=== PATIENT | male | born 1955 | race Caucasian/White ===

== ENCOUNTER → 2016-06-28 | Outpatient (CLI) | payer MEDICAID ==
--- NOTE | 2016-06-28 18:06 | PN ---
This patient is a 60-year-old coming in for a CPAP compliancy check. He had severe obstructive sleep apnea and an AHI of 48.4 and chronic hypersomnia. He underwent CPAP titration on 03/21/2016 and he failed the titration knowing that there was ongoing episodes of hypopneas and central apneas emerging while on CPAP therapy. Based on that, the patient was given an auto ASV treatment. The patient is coming in for a compliancy check. He has an ASV machine with E-PAP minimum of 5, maximum of 15 and a pressure support minimum of 5 and pressure support maximum of 10. Based on the compliance data, his ASV is used for more than 4 hours is 27 out of 30. His AHI while on treatment is at 3.8. No central apneas noted. He is however having difficulties with his mask interface. He is utilizing a Simplus full face mask and there is considerable amount of leak around the mask, especially after the treatment kicks in following a ramp of 45 minutes. His leak factor is 53 L/min. As such, his overall clinical response as reported by the patient is suboptimal despite the adequate and successful drop in AHI while on treatment. BP is 128/86, pulse 77, respirations 18, temperature 98.3. Anamoose score is 7. Weight is 207. GENERAL APPEARANCE: Calm, comfortable. HEENT: Mallampati class IV. There is no goiter, neck mass. LUNGS: Clear to auscultation. HEART: Sounds are regular rate and rhythm. Normal S1, S2. ABDOMEN: Soft, nontender. No organomegaly. EXTREMITIES: No clubbing. No cyanosis or clubbing. IMPRESSION: 1. Severe obstructive sleep apnea, apnea-hypopnea index of 48.4 with treatment emergent central apnea, and some residual obstructive hypopneas maintained on auto ASV treatment. 2. Poor mask interface seal with increased air leak and secondary discomfort. 3. Chronic hypersomnia with limited improvement with ASV treatment. Anamoose score is 7. PLAN: 1. Will drop the EPAP maximum pressure down to 10. 2. We will provide the patient AirFit F10 full-face mask and drop his Simplus mask. 3. See me back in 6 weeks in follow-up to re-evaluate the compliance.
== END | disposition home or self-care (01) ==

== ENCOUNTER → 2016-08-16 | Outpatient (CLI) | payer MEDICAID ==
--- NOTE | 2016-08-16 23:38 | PN ---
This is a 60-year-old male patient with complex and severe obstructive sleep apnea with an AHI of 48.4. The patient had developed treatment-emergent central apneas and some residual obstructive hypopneas. Based on that, the patient was given Auto ASV treatment. He was having difficulties with the mask seal, and based on that the patient is coming in for a followup. Note that on today's evaluation the patient is still having difficulties utilizing his mask. He is having leaks around the nose bridge, and the leak is extending to his eyes, which is making him very uncomfortable. It seems that over the past 2 weeks he has not utilizing his ASV machine, and he has become much more symptomatic. His weight has been stable. The patient is getting more frustrated and obviously he will need a different type of mask to be utilized to improve the leak that has been noted. Note that the patient has used his Simplus mask and an AirFit F10, and both have failed to provide a good seal. BP is 131/79, pulse 83, respirations 16, temperature 97.7, saturation 95% on room air. Weight is 207. GENERAL APPEARANCE: Calm, comfortable. HEENT: Crowding of the posterior pharynx. No goiter or neck mass. LUNGS: Clear to auscultation. HEART: Heart sounds are regular rate and rhythm. Normal S1, S2. ABDOMEN: Soft, nontender. No organomegaly. EXTREMITIES: No edema. No cyanosis or clubbing. IMPRESSION: 1. Severe symptomatic obstructive sleep apnea; apnea-hypopnea index of 48.4; with treatment-emergent central apneas and some residual obstructive hypopneas. The patient was offered ASV treatment, and the treatment has been suboptimal due to poor mask interface seal. 2. Chronic hypersomnia. Current [place] score is 9. PLAN: 1. Change the ASV to automatic and offer pressures as follows: EPAP minimum of 5, APAP maximum of 15, pressure support of 4 minimum and 10 maximum. 2. Provide the patient a Mirage Quattro full-face mask, medium size. This was tried in the office and seems to be successful. 3. See me back in 2 months' time in followup. Anticipate further improvement in compliance with the above-mentioned adjustments.
== END | disposition home or self-care (01) ==
LOC: SLEEP 14:24
PROVIDERS: ATTEND Internal Medicine Critical Care Medicine
DX: G47.33 Obstructive sleep apnea (adult) (pediatric) (principal); G47.10 Hypersomnia, unspecified; Z99.89 Dependence on other enabling machines and devices

== ENCOUNTER → 2016-12-01 | Outpatient (CLI) | payer MEDICAID ==
--- NOTE | 2016-12-01 08:16 | CT ---
EXAMINATION TYPE: CT chest wo con DATE OF EXAM: 12/01/2016 COMPARISON: 08/20/2010 HISTORY: Patient complains of left shoulder and neck pain with crepitus. CT DLP: 727 mGycm, Automated exposure control for dose reduction was used. CONTRAST: None TECHNIQUE: Axial images were obtained at 5 mm thick sections. Reconstructed images are reviewed on [email or web address] computer in the coronal plane. FINDINGS: Portion of the thyroid visualized is normal. No suspicious lung nodules or focal infiltrates are present. No pneumothorax is evident. No subcutane ous air is identified. There is some streak opacity along the major fissure on the left most likely o n the basis of atelectasis. Some minimal dependent atelectasis may be at the posterior left base as w ell. No enlarged mediastinal or hilar adenopathy is evident. The ascending aorta diameter at the level o f the main pulmonary artery is 3.6 cm. The main pulmonary artery diameter at the bifurcation is 2.5 cm. Coronary artery calcifications present. Limited CT sections are obtained through the upper abdomen. Abdomen is essentially unremarkable. IMPRESSIONS: 1. Mild left basilar atelectasis. No pneumothorax or subcutaneous emphysema within the [id number].
== END | disposition home or self-care (01) ==
LOC: RADCTMAIN 07:17
PROVIDERS: ATTEND Orthopaedic Surgery
DX: J98.11 Atelectasis (principal); S20.212A Contusion of left front wall of thorax, initial encounter; S43.52XA Sprain of left acromioclavicular joint, initial encounter; M50.00 Cervical disc disorder with myelopathy, unspecified cervical region
CPT/HCPCS: 71250

== ENCOUNTER → 2016-12-01 | Outpatient (CLI) | payer MEDICAID ==
--- NOTE | 2016-12-01 23:05 | MR ---
EXAMINATION TYPE: MR cervical spine wo con DATE OF EXAM: 12/01/2016 COMPARISON: NONE HISTORY: Neck pain, erik arm numbness x 2 weeks, no trauma TECHNIQUE: Multiplanar, multisequence images of the cervical spine were acquired. The cervical vertebra have normal alignment. Disc spaces are fairly normal for age. There is no evide nce for fracture. There are small posterior disc bulges at C4-5 C5-6 without significant impingement on the spinal canal. Cervical spinal cord has normal signal pattern. There is no evidence of edema. T here is no spinal stenosis. Posterior elements appear intact. The brainstem appears normal. I see no paraspinal mass. There is minimal uncovertebral spurring and neural foraminal impingement on the righ t side at C4-5 best seen on the axial images.. IMPRESSION: There is mild uncovertebral spurring and neural foraminal impingement at C4-5 on the right side. No s gina stenosis. No fracture.
== END | disposition home or self-care (01) ==
LOC: RADMRIMAIN 19:49
PROVIDERS: ATTEND Orthopaedic Surgery
DX: M46.02 Spinal enthesopathy, cervical region (principal); M48.8X2 Other specified spondylopathies, cervical region
CPT/HCPCS: 71250; 72141

== ENCOUNTER → 2016-12-05 | Outpatient (CLI) | payer MEDICAID ==
--- NOTE | 2016-12-05 09:11 | MR ---
EXAMINATION TYPE: MR shoulder LT wo con DATE OF EXAM: 12/05/2016 8:46 AM COMPARISON: NONE HISTORY: Lt shoulder pain TECHNIQUE: Multiplanar, multisequence imaging of the left shoulder is performed without contrast. FINDINGS: The study is mildly compromised by patient motion artifact. There is no evidence of an os acromiale. There are [id number] hypertrophic and inflammatory maximus nges in the left AC joint. The acromion is neutral. There is a 9.3 mm rim rent tear involving the anterior fibers of the infraspinatus tendon. The supras pinatus tendon appears unremarkable. The cartilaginous glenoid labrum appears intact. There is some intrasubstance abnormal signal in the intra-articular portion of the biceps tendon. The biceps tendon is intact and inserts normally upon the biceps anchor. There is a small amount of fluid in the rotator interval. IMPRESSION: 1. 9 MM INDETERMINATE TEAR INVOLVING THE ANTERIOR FIBERS OF THE INFRASPINATUS TENDON. 2. ABNORMAL SIGNAL WITHIN THE INTRA-ARTICULAR PORTION OF THE BICEPS TENDON MAY REFLECT INTRASUBSTANCE TEAR OR TENDINOSIS OF THE BICEPS TENDON. 3. [id number] HYPERTROPHIC AND INFLAMMATORY CHANGES INVOLVING THE LEFT AC JOINT.
== END | disposition home or self-care (01) ==
LOC: RADMRIMAIN 08:06
PROVIDERS: ATTEND Orthopaedic Surgery
DX: S46.912A Strain of unspecified muscle, fascia and tendon at shoulder and upper arm level, left arm, initial encounter (principal)

== ENCOUNTER → 2017-05-09 | Outpatient (CLI) | payer MEDICAID ==
--- NOTE | 2017-05-09 18:04 | PN ---
PROGRESS NOTE This is a 61-year-old male patient coming in for further advice regarding his complex JOSELUIS treatment. The patient was diagnosed having severe JOSELUIS with an AHI of 48.4, and the patient developed treatment emergent central apneas and residual obstructive hypopneas. He was given ASV therapy and during his last evaluation his ASV machine was set with a EPAP minimum of 4, maximum of 10, pressure support minimum of 5, maximum of 15. The main issue with this patient was finding an appropriate mask interface. The patient continued having increased leaks around the mask and I tried him on different masks including Simplus full-face mask, AirFit F10 full-face mask and Mirage Quattro full face mask. In all instances, the patient continued to have leaks and his treatment was quite noisy and uncomfortable and he ended up quitting the treatment, he has not used for the past 6 months. Over the past 6 months the patient became more symptomatic and he is coming in for further advice. Yesterday for example he used a Mirage Quattro fullface mask, and his treatment was successful and his AHI was less than 5 without any major leaks. I think the problem is the mask interface and at same time, the patient has low commitment towards treatment. However I suspect that the patient is more symptomatic and he may make an better effort to restart treatment. Based on that, I spent at least 15 minutes to 20 minutes with him trying to find him a better mask interface to improve tolerability and comfort. His weight has been stable. No other new comorbid conditions. BP is 144/82, pulse 100, respirations 16, temperature 97.6, saturation 93% on room air. Weight is 212, height is 5 feet 8, general appearance is calm and comfortable. Head is atraumatic, normocephalic. Neck is supple. Mallampati class IV. There is no goiter or neck mass. Lungs clear to auscultation. Heart sounds are regular rate and rhythm. Normal S1, S2. Abdomen is soft, nontender. No organomegaly. EXTREMITIES: No edema. No cyanosis or clubbing. IMPRESSION: 1. Severe symptomatic obstructive sleep apnea with treatment emergent central apneas and residual hypopneas. AHI was at 48. The patient was offered ASV therapy with above-mentioned settings. 2. Chronic hypersomnia Living[place] Score is at 7. PLAN: 1. Utilize the same machine with the same settings. 2. I offered this patient two different masks, one of them is an Joanne View and the other one is an AirFit F20. He will try both masks and report to me back of the clinical response. I am hoping that we should be able to achieve better mask seal and improve his tolerability and compliance. CHERYL / FOSTER: [id number] /
== END | disposition home or self-care (01) ==
LOC: SLEEP 16:25
PROVIDERS: ATTEND Internal Medicine Critical Care Medicine
DX: G47.33 Obstructive sleep apnea (adult) (pediatric) (principal)

== ENCOUNTER → 2018-07-16 | Outpatient (CLI) | payer MEDICAID ==
--- NOTE | 2018-07-16 12:48 | EST ---
EXERCISE STRESS AGE: 62 SEX: M HT: 5'9" WT: 205 PROTOCOL: Ulises Stress Test STAGE: II DURATION OF EXERCISE: 6:00 HEART RATE REST: 82 BLOOD PRESSURE REST: 135/88 MAXIMUM HEART RATE ACHIEVED: 141 MAXIMUM BLOOD PRESSURE: 180/82 85% MPHR: 134 100% MPHR: 158 METS: 7.1 INDICATIONS: Chest pain. CLINICAL INFORMATION: Patient was exercised for a total period of 6 minutes, a peak heart rate of 141 was achieved, maximum blood pressure of 180/82 mmHg was noted. Resting EKG shows normal sinus rhythm with a QRS morphology suggestive for right bundle branch block pattern was noted. During exercise J-point depression with upsloping ST segments were noted. Occasional PVCs were noted and occasional ventricular couplets and triplets were noted. The patient complained of atypical chest pain during the test. FINAL IMPRESSION: 1. This stress electrocardiogram is not suggestive of ischemia. 2. Patient complained of atypical chest pain during the test. 3. Intermittent premature ventricular contractions and occasional ventricular couplets and triplets were noted during exercise. MMODL / IJN: [id number] /
== END ==
LOC: RADNMMAIN 08:48
PROVIDERS: ATTEND Family Medicine
DX: R07.89 Other chest pain (principal)
CPT/HCPCS: 93017

== ENCOUNTER → 2018-07-20 | Outpatient (CLI) | payer MEDICAID ==
[2018-07-20 09:01] LABS: HCT 44.9 % (39.0-53.0); HGB 14.4 gm/dL (13.0-17.5); MCH 28.3 pg (25.0-35.0); MCHC 31.9 g/dL (31.0-37.0); MCV 88.7 fL (80.0-100.0); Mean Platelet Volume 6.6; Platelet Count 283 k/uL (150-450); RBC 5.07 m/uL (4.30-5.90); WBC 6.9 k/uL (3.8-10.6)
[2018-07-20 16:48] LABS: Albumin 3.9 g/dL (3.80-4.90); Albumin/Globulin Ratio 2.17 (1.60-3.17); Anion Gap 6.5 mmol/L (4.00-12.00); Calcium 9.5 mg/dL (8.7-10.3); Carbon Dioxide 29.5 mmol/L (21.6-31.8); Globulin 1.8 g/dL (1.6-3.3); Potassium 5.4 mmol/L (3.5-5.5); Total Bilirubin 0.3 mg/dL (0.2-1.2); Total Protein 5.7 g/dL (6.2-8.2)
== END ==
LOC: LABWHC1 07:30
PROVIDERS: ATTEND Family Medicine
DX: Z00.00 Encounter for general adult medical examination without abnormal findings (principal); E55.9 Vitamin D deficiency, unspecified; R07.89 Other chest pain
CPT/HCPCS: 36415; 80053; 80061; 82306; 84153; 84439; 84443; 85027

== ENCOUNTER → 2019-07-01 | Outpatient (CLI) | payer MEDICAID ==
[2019-07-01 08:52] LABS: Appearance,Urine Clear (Clear); Bilirubin,Urine Negative (Negative); Blood,Urine Negative (Negative); Color,Urine Yellow; Glucose,Urine (UA) Negative (Negative); Ketones,Urine Negative (Negative); Leukocyte Esterase,Urine Negative (Negative); Nitrite,Urine Negative (Negative); PH, Urine 7.5 (5.0-8.0); Protein,Urine Negative (Negative); Urobilinogen,Urine <2.0 mg/dL (<2.0)
[2019-07-01 08:56] LABS: Basophils # (A) 0.1 k/uL (0-0.2); Basophils % (A) 1 %; Eosinophils # (A) 0.7 k/uL (0-0.7); Eosinophils % (A) 8 %; HCT 43.5 % (39.0-53.0); HGB 14.5 gm/dL (13.0-17.5); Lymphocytes # (A) 2.9 k/uL (1.0-4.8); Lymphocytes % (A) 36 %; MCH 28.9 pg (25.0-35.0); MCHC 33.2 g/dL (31.0-37.0); MCV 87.1 fL (80.0-100.0); Mean Platelet Volume 6.7; Monocytes # (A) 0.3 k/uL (0-1.0); Monocytes % (A) 4 %; Neutrophils # (A) 4.1 k/uL (1.3-7.7); Neutrophils % (A) 50 %; Platelet Count 363 k/uL (150-450); RDW 13.2 % (11.5-15.5); WBC 8.3 k/uL (3.8-10.6)
[2019-07-01 10:11] LABS: Erythrocyte Sedimentation Rate 8 mm/hr (0-15)
[2019-07-01 16:11] LABS: African American GFR (CKD) 110.2 (60.0-200.0); Albumin 4.1 g/dL (3.80-4.90); Albumin/Globulin Ratio 2.16 (1.60-3.17); Anion Gap 2.3 mmol/L (4.00-12.00); C Reactive Protein, High Sens 4.58 mg/L (0.000-3.000); Calcium 9.3 mg/dL (8.7-10.3); Carbon Dioxide 27.7 mmol/L (21.6-31.8); Chol/HDL Ratio 2.26; Globulin 1.9 g/dL (1.6-3.3); Non-African American GFR(CKD) 95.1 (60.0-200.0); Potassium 4.6 mmol/L (3.5-5.5); Total Bilirubin 0.6 mg/dL (0.3-1.2)
== END | disposition home or self-care (01) ==
LOC: LABWHC1 08:20
PROVIDERS: ATTEND Family Medicine
DX: Z00.00 Encounter for general adult medical examination without abnormal findings (principal); Z13.220 Encounter for screening for lipoid disorders; Z12.5 Encounter for screening for malignant neoplasm of prostate
CPT/HCPCS: 36415; 80053; 80061; 81003; 82306; 82550; 82607; 84153; 84443; 85025; 85652; 86141

== ENCOUNTER → 2019-09-06 | Outpatient (CLI) | payer MEDICAID | END | disposition home or self-care (01) | LOC: LABWHC1 09:32 | PROVIDERS: ATTEND Urology | DX: R97.20 Elevated prostate specific antigen [PSA] (principal) | CPT/HCPCS: 36415; 84153 ==

== ENCOUNTER → 2020-03-17 | Outpatient (CLI) | payer MEDICAID ==
--- NOTE | 2020-03-17 12:00 | ECHOF ---
Referral Reason:R07.9 chest pain MEASUREMENTS -------- HEIGHT: 175.3 cm WEIGHT: 99.8 kg BP: RVIDd: 3.2 cm (< 3.3) IVSd: 1.5 cm (0.6 - 1.1) LVIDd: 4.0 cm (3.9 - 5.3) LVPWd: 1.3 cm (0.6 - 1.1) IVSs: 1.9 cm LVIDs: 2.9 cm LVPWs: 1.6 cm LA Diam: 3.5 cm (2.7 - 3.8) LAESV Index (A-L): 24.22 ml/m Ao Diam: 4.0 cm (2.0 - 3.7) AV Cusp: 2.4 cm (1.5 - 2.6) MV EXCURSION: 14.230 mm (> 18.000) MV EF SLOPE: 47 mm/s (70 - 150) EPSS: 1.4 cm MV E Salas: 0.68 m/s MV DecT: 214 ms MV A Salas: 1.04 m/s MV E/A Ratio: 0.66 AR PHT: 684 ms FINDINGS -------- Sinus rhythm. This was a technically good study. The left ventricular size is normal. There is moderate concentric left ventricular hypertrophy. O verall left ventricular systolic function is normal with, an EF between 60 - 65 %. The right ventricle is normal in size. Normal LA size by volume 22+/-6 ml/m2. The right atrium is normal in size. Interatrial and interventricular septum intact. Aortic valve is trileaflet and is mildly thickened. There is mild aortic regurgitation. The mitral valve leaflets are mildly thickened. Mild mitral annular calcification present. There is trace mitral regurgitation. The tricuspid valve appears structurally normal. Trace/mild (physiologic) pulmonic regurgitation. The aortic root is dilated measuring 4.0cm. Normal inferior vena cava with normal inspiratory collapse consistent with estimated right atrial pre ssure of 5 mmHg. There is no pericardial effusion. CONCLUSIONS -------- 1. The left ventricular size is normal. 2. There is moderate concentric left ventricular hypertrophy. 3. Overall left ventricular systolic function is normal with, an EF between 60 - 65 %. 4. Aortic valve is trileaflet and is mildly thickened. 5. There is mild aortic regurgitation. 6. The mitral valve leaflets are mildly thickened. 7. Mild mitral annular calcification present. 8. There is trace mitral regurgitation. 9. Trace/mild (physiologic) pulmonic regurgitation. 10. The aortic root is dilated measuring 4.0cm. 11. There is no pericardial effusion. VP SOFTWARE ENGINEERING: Denise Salomon RDCS
== END | disposition home or self-care (01) ==
LOC: RADECHMAIN 10:16
PROVIDERS: ATTEND Internal Medicine Interventional Cardiology
DX: I37.1 Nonrheumatic pulmonary valve insufficiency (principal); I08.0 Rheumatic disorders of both mitral and aortic valves; I77.810 Thoracic aortic ectasia
CPT/HCPCS: 93306

== ENCOUNTER → 2020-03-17 | Outpatient (CLI) | payer MEDICAID ==
[2020-03-17 12:17] LABS: HCT 45.4 % (39.0-53.0); MCH 29.1 pg (25.0-35.0); MCV 88.1 fL (80.0-100.0); Mean Platelet Volume 6.7; Platelet Count 312 k/uL (150-450); RBC 5.16 m/uL (4.30-5.90); RDW 13.1 % (11.5-15.5); WBC 10.5 k/uL (3.8-10.6)
[2020-03-17 12:22] LABS: African American GFR (CKD) >90 (>60 ml/min/1.73 sqM); Anion Gap 4 mmol/L; Blood Urea Nitrogen 18 mg/dL (9-20); Carbon Dioxide 29 mmol/L (22-30); Chloride 102 mmol/L (98-107); Non-African American GFR(CKD) >90 (>60 ml/min/1.73 sqM); Potassium 4.9 mmol/L (3.5-5.1); Sodium 135 mmol/L (137-145)
== END | disposition home or self-care (01) ==
LOC: LABPAT 11:04
PROVIDERS: ATTEND Internal Medicine Interventional Cardiology
DX: Z01.818 Encounter for other preprocedural examination (principal); R07.9 Chest pain, unspecified
CPT/HCPCS: 36415; 80051; 82565; 84520; 85027

== ENCOUNTER 2020-03-19 09:20 | Day surgery (SDC) | payer MEDICAID ==
[2020-03-17 09:25] VITALS: BMI 32.5
[~2020-03-19 09:20] MED LIST: ALPRAZolam 0.25 MG TAB PO PRN; ALPRAZolam 0.5 MG TAB PO PRN; ASPIRIN 325 MG TAB PO STA; ATORVASTATIN 80 MG TAB PO STA; NITROGLYCERIN SL TABS 0.4 MG TAB SUBLINGUAL PRN; SODIUM CHLORIDE 0.9% 1,000 ML in EMPTY BAG 1 BAG IV ONE
[2020-03-19] MEDS: MIDAZOLAM 2 MG/2 ML VIAL IV ONE ×2 (10:40→10:47)
[2020-03-19] MEDS ORDERED: LIDOCAINE 1% INJ 10MG/ML (20 ML MDV) SQ ONE ×2 (10:47→10:55)
[2020-03-19] MEDS ORDERED: CLOPIDOGREL 75 MG TAB PO ONE (11:11)
[2020-03-19] MEDS ORDERED: IOPAMIDOL-370 125ML BTL INJ ONE (11:21)
[2020-03-19] MEDS ORDERED: GABAPENTIN 400 MG CAP PO PRN (11:32)
[2020-03-19] MEDS ORDERED: CYCLOBENZAPRINE 10 MG TAB PO PRN (11:32)
[2020-03-19] MEDS ORDERED: ATROPINE SULFATE 0.1 MG/ML 10ML SYRINGE IV PRN (11:33)
[2020-03-19] MEDS ORDERED: MAG HYDROX/AL HYDROX/SIMETH 30 ML CUP PO PRN (11:33)
[2020-03-19] MEDS ORDERED: ZOLPIDEM 5 MG TAB PO PRN (11:33)
[2020-03-19] MEDS ORDERED: RX INFO: IV CONTRAST WAS GIVEN 1 EACH MISC MISCELLANE PRN (11:33)
[2020-03-19] MEDS ORDERED: NITROGLYCERIN SL TABS 0.4 MG TAB SUBLINGUAL PRN (11:33)
[2020-03-19] MEDS ORDERED: SODIUM CHLORIDE 0.9% 1,000 ML IV SCH (11:45)
--- NOTE | 2020-03-19 12:33 | CC ---
CARDIAC CATHETERIZATION REPORT DATE OF SERVICE: 03/19/2020 PERFORMING PHYSICIAN: Delbert Tay MD. PROCEDURE PERFORMED: 1. Selective right and left coronary angiogram. 2. Left heart catheterization. 3. Successful stenting of the mid RCA using 3.0 x 18 mm Xience JANES with an excellent angiographic result and reduction of stenosis from 90% to 0%. 4. INDICATION: This is a pleasant 64-year-old gentleman with hypertension and dyslipidemia who was experiencing symptoms of chest pain with exertion concerning for severe underlying coronary artery disease. Because of that, a heart catheterization was advised. APPROACH: 1. Right radial artery. 2. Right common femoral artery. COMPLICATION: None. LEVEL OF SEDATION: Moderate with sedation length of 40 minutes. PROCEDURE DESCRIPTION: After obtaining informed consent, the patient was brought to the cardiac builder's labourer. Initially the right radial artery was cannulated using micropuncture technique, the micropuncture wire passed easily then I placed a 6-Maltese sheath in the right radial artery. Attempting advancing JR4 catheter from right radial approach was unsuccessful and was painful to the patient and because of that, the right radial approach was aborted and I decided to access the right groin. The right common femoral artery was cannulated using micropuncture technique, the micropuncture wire passed easily, then I placed a 6-Maltese sheath at the right common femoral artery. After that, I did selective right and left coronary angiogram using JR4 and JL3.5 catheters. Left heart catheterization was performed using 6-Maltese pigtail catheter. After that, I decided to intervene on the right coronary artery. Please see a separate paragraph for that. SELECTIVE CORONARY ANGIOGRAM: 1. The right coronary artery is a large caliber vessel and it is a dominant vessel. The RCA is calcified. The RCA proximally has mild disease only and in the midportion does have severe lesion appeared to be in the range of 80% to 90%. The RCA distally is normal and bifurcates into PDA and PLV branches, both appeared to be angiographically normal. 2. The left main is angiographically normal. It bifurcates into LCX and LAD. 3. The LCX is a medium caliber vessel. It is a nondominant vessel. The proximal left circumflex is normal and gives rise into an OM1 which has a tight lesion, appeared to be in the range of 80% and seems to be slightly calcified. The mid left circumflex appeared to have mild disease only and gives rise into second OM branch which appeared to be angiographically normal. The left circumflex continued after that as a small-caliber vessel in the AV groove. 4. The LAD proximally has mild disease only and gives rise into first diagonal branch which seems to be angiographically normal. The mid and distal LAD appeared to be normal. 5. HEMODYNAMICS: The LVEDP was about 10 mmHg without significant gradient across the aortic valve. 6. PCI of the RCA: Anticoagulation was achieved with heparin which was given at the beginning after inserting the right radial sheath. After that, I did engage the RCA using JR4 guide. I did wire it using a run-through wire. After that I did predilatation using 2.5 x 12 mm balloon before I deployed 3.0 x 18 mm Xience JANES where the stent was positioned under fluoroscopy guidance and deployed under 14 atmospheres for 20 seconds. After that, I did postdilatation using 3.25 x 8 mm NC balloon which was inflated under 14 atmospheres for 20 seconds. The following angiogram showed good angiographic results and the procedure was completed without any complication. CONCLUSION: 1. Calcified right and left coronary systems. 2. Critical disease involving the mid RCA. 3. Severe disease involving OM1 of the left circumflex. 4. Successful stenting of the RCA. POSTPROCEDURE MANAGEMENT: 1. PCI of the first obtuse marginal branch with probably adjunctive use of atherectomy. 2. Dual anti-platelet therapy. 3. Follow up with the patient. MMLEXIL / IJN: [id number] /
[2020-03-19 20:22] VITALS: RESP 18
[2020-03-19] MEDS ORDERED: ASPIRIN 81 MG PO SCH (21:00)
[2020-03-19] MEDS ORDERED: ATORVASTATIN 80 MG TAB PO SCH (21:00)
[2020-03-19] MEDS ORDERED: METOPROLOL SUCCINATE (ER) 25 MG TAB.ER.24H PO SCH (21:00)
[2020-03-19] MEDS ORDERED: TAMSULOSIN 0.4 MG CAP.ER.24H PO SCH (21:00)
[2020-03-20 07:48] LABS: Basophils # (A) 0.1 k/uL (0-0.2); Basophils % (A) 0 %; Eosinophils # (A) 0.3 k/uL (0-0.7); Eosinophils % (A) 3 %; HCT 46.5 % (39.0-53.0); HGB 15.4 gm/dL (13.0-17.5); Lymphocytes # (A) 2.2 k/uL (1.0-4.8); Lymphocytes % (A) 20 %; MCHC 33.1 g/dL (31.0-37.0); MCV 90.8 fL (80.0-100.0); Mean Platelet Volume 6.4; Monocytes # (A) 0.5 k/uL (0-1.0); Monocytes % (A) 5 %; Neutrophils # (A) 7.9 k/uL (1.3-7.7); Neutrophils % (A) 71 %; Platelet Count 266 k/uL (150-450); RBC 5.12 m/uL (4.30-5.90); RDW 12.9 % (11.5-15.5); WBC 11.2 k/uL (3.8-10.6)
[2020-03-20 07:58] LABS: African American GFR (CKD) >90 (>60 ml/min/1.73 sqM); Anion Gap 7 mmol/L; Blood Urea Nitrogen 14 mg/dL (9-20); Calcium 9.4 mg/dL (8.4-10.2); Carbon Dioxide 24 mmol/L (22-30); Chloride 105 mmol/L (98-107); Glucose 104 mg/dL (74-99); Non-African American GFR(CKD) >90 (>60 ml/min/1.73 sqM); Sodium 136 mmol/L (137-145)
[2020-03-20 08:00] LABS: Potassium 5.1 mmol/L (3.5-5.1)
[2020-03-20] MEDS ORDERED: FLUTICASONE 44 MCG INHALER INHALATION SCH (08:00)
[2020-03-20] MEDS ORDERED: NON FORMULARY DRUG (Glucos Sul 2kcl/Msm/Chond/C/Mn [Glucosamine Chondroitin Cap] 1 EACH Ca PO SCH (09:00)
[2020-03-20] MEDS ORDERED: CLOPIDOGREL 75 MG TAB PO SCH (11:00)
[2020-03-20 13:28] VITALS: BP 134/81; PULSE 83; TEMP 98.1
== END 2020-03-20 13:45 | disposition home or self-care (01) ==
LOC: CATHCVL 09:20 → 3SCARD 11:24 → CATHCVL 03-20 13:45
PROVIDERS: ATTEND Internal Medicine Interventional Cardiology
DX: I25.110 Atherosclerotic heart disease of native coronary artery with unstable angina pectoris (principal); I10 Essential (primary) hypertension; E78.5 Hyperlipidemia, unspecified; G47.33 Obstructive sleep apnea (adult) (pediatric); E66.9 Obesity, unspecified; Z87.891 Personal history of nicotine dependence; Z79.1 Long term (current) use of non-steroidal anti-inflammatories (NSAID); Z79.51 Long term (current) use of inhaled steroids; Z79.899 Other long term (current) drug therapy; Z88.0 Allergy status to penicillin; Z68.33 Body mass index [BMI] 33.0-33.9, adult; Z82.49 Family history of ischemic heart disease and other diseases of the circulatory system
CPT/HCPCS: 94640; 93458; 80048; 85025; C9600; C1760; C1887; C1725 ×2; C1769 ×5; C1894 ×2; C1874; J2250; J2001; J1644; Q9967

== ENCOUNTER → 2020-03-27 | Outpatient (CLI) | payer MEDICAID ==
--- NOTE | 2020-03-28 07:51 | MR ---
EXAMINATION TYPE: MR knee RT wo con DATE OF EXAM: 03/27/2020 COMPARISON: Pain HISTORY: Pain right knee, ID TECHNIQUE: Multiplanar, multisequence imaging of the right knee is performed without IV contrast. FINDINGS: There is narrowing of the patellofemoral compartment and medial compartment of the knee debby nt. There is grade IV chondromalacia patellar cartilage with reactive marrow edema. Grade III chondro malacia of the medial articular femoral cartilage noted. There is a complex tear involving the posterior horn medial meniscus. Lateral meniscus intact. Benign appearing cyst within the proximal tibia may be related to simple bone cyst or geode Anterior cruciate, posterior cruciate, medial collateral, and lateral collateral ligaments: Intact. S mall soft tissue edema noted. Patellar and quadriceps tendons are intact. Mild increased signal along the proximal aspect of the pa tellar tendon to be associated with mild patellar tendinitis. Nonspecific marrow changes involving articular surface of the mid femur. There is loss of articular c artilage in the region therefore finding is felt to be related to reactive marrow edema IMPRESSION: 1. Complex tear posterior horn medial meniscus. 2. Osteoarthritis with extensive chondromalacia as discussed above. 3. Small amount of fluid in the suprapatellar bursa. Correlate for proximal patellar tendinitis.
== END | disposition home or self-care (01) ==
LOC: RADMRIMAIN 12:39
PROVIDERS: ATTEND Physician Assistant
DX: S83.241A Other tear of medial meniscus, current injury, right knee, initial encounter (principal); M17.11 Unilateral primary osteoarthritis, right knee

== ENCOUNTER 2020-04-03 10:52 | Day surgery (SDC) | payer MEDICAID ==
[2020-04-03] MEDS ORDERED: SODIUM CHLORIDE 0.9% 1,000 ML IV ONE (11:10)
[2020-04-03] MEDS ORDERED: LIDOCAINE 1% INJ 10MG/ML (20 ML MDV) ONE (12:35)
[2020-04-03] MEDS ORDERED: MIDAZOLAM 2 MG/2 ML VIAL IVP ONE (12:46)
[2020-04-03] MEDS ORDERED: LIDOCAINE 1% INJ 10MG/ML (20 ML MDV) SQ ONE ×2 (12:51→12:52)
[2020-04-03] MEDS ORDERED: BIVALIRUDIN BOLUS 250 MG/50 ML IV ONE (12:56)
[2020-04-03] MEDS ORDERED: BIVALIRUDIN 250 MG in SODIUM CHLORIDE 0.9% 50 ML IV ONE (12:57)
[2020-04-03] MEDS ORDERED: NITROGLYCERIN 1000MCG/10ML SYRINGE INTRACORON ONE (13:15)
[2020-04-03] MEDS ORDERED: CLOPIDOGREL 75 MG TAB ONE (13:24)
[2020-04-03] MEDS ORDERED: IOPAMIDOL-370 125ML BTL INJ ONE (13:30)
[2020-04-03] MEDS ORDERED: CYCLOBENZAPRINE 10 MG TAB PO PRN (13:31)
[2020-04-03] MEDS ORDERED: GABAPENTIN 400 MG CAP PO PRN (13:31)
[2020-04-03] MEDS ORDERED: MAG HYDROX/AL HYDROX/SIMETH 30 ML CUP PO PRN (13:32)
[2020-04-03] MEDS ORDERED: NITROGLYCERIN SL TABS 0.4 MG TAB SUBLINGUAL PRN (13:32)
[2020-04-03] MEDS ORDERED: ATROPINE SULFATE 0.1 MG/ML 10ML SYRINGE IV PRN (13:32)
[2020-04-03] MEDS ORDERED: ZOLPIDEM 5 MG TAB PO PRN (13:32)
[2020-04-03] MEDS ORDERED: RX INFO: IV CONTRAST WAS GIVEN 1 EACH MISC MISCELLANE PRN (13:32)
[2020-04-03] MEDS ORDERED: CLOPIDOGREL 75 MG TAB PO ONE (13:36)
[2020-04-03] MEDS ORDERED: SODIUM CHLORIDE 0.9% 1,000 ML IV SCH (13:45)
[2020-04-03 14:13] VITALS: BMI 32.1
[2020-04-03 16:41] VITALS: RESP 16
[2020-04-03] MEDS ORDERED: HYDROmorphone 0.5 MG/0.5 ML SYRINGE IVP STA (16:44)
[2020-04-03] MEDS ORDERED: ASPIRIN 81 MG PO SCH (21:00)
[2020-04-03] MEDS ORDERED: METOPROLOL SUCCINATE (ER) 25 MG TAB.ER.24H PO SCH (21:00)
[2020-04-03] MEDS ORDERED: ATORVASTATIN 80 MG TAB PO SCH (21:00)
[2020-04-03] MEDS ORDERED: TAMSULOSIN 0.4 MG CAP.ER.24H PO SCH (21:00)
[2020-04-04 05:03] LABS: Basophils # (A) 0.1 k/uL (0-0.2); Basophils % (A) 1 %; Eosinophils # (A) 0.5 k/uL (0-0.7); Eosinophils % (A) 5 %; HCT 42.1 % (39.0-53.0); HGB 13.7 gm/dL (13.0-17.5); Lymphocytes # (A) 1.7 k/uL (1.0-4.8); Lymphocytes % (A) 16 %; MCH 29.1 pg (25.0-35.0); MCHC 32.5 g/dL (31.0-37.0); MCV 89.4 fL (80.0-100.0); Mean Platelet Volume 6.4; Monocytes # (A) 0.5 k/uL (0-1.0); Monocytes % (A) 5 %; Neutrophils # (A) 7.9 k/uL (1.3-7.7); Neutrophils % (A) 73 %; Platelet Count 237 k/uL (150-450); RBC 4.71 m/uL (4.30-5.90); RDW 12.9 % (11.5-15.5); WBC 10.8 k/uL (3.8-10.6)
[2020-04-04 05:14] LABS: African American GFR (CKD) >90 (>60 ml/min/1.73 sqM); Anion Gap 4 mmol/L; Blood Urea Nitrogen 14 mg/dL (9-20); Carbon Dioxide 26 mmol/L (22-30); Chloride 104 mmol/L (98-107); Glucose 112 mg/dL (74-99); Non-African American GFR(CKD) >90 (>60 ml/min/1.73 sqM); Potassium 4.3 mmol/L (3.5-5.1); Sodium 134 mmol/L (137-145)
[2020-04-04] MEDS ORDERED: FLUTICASONE 110 MCG INHALER INHALATION SCH (08:00)
--- NOTE | 2020-04-04 08:42 | DS ---
DISCHARGE SUMMARY ADMISSION DATE: April 02, 2020 DISCHARGE DATE: April 03, 2020. BRIEF HISTORY: This is a pleasant 64-year-old gentleman who was admitted to the hospital yesterday and underwent successful atherectomy and stenting of OM1 of the left circumflex with an excellent angiographic results. He was seen this morning. The right groin is soft and nontender and without any bruises. He is going to be discharged home on dual anti-platelet therapy and statin and I will follow up with him next week in the office. CHERYL / SYDNIEN: [id number] /
[2020-04-04] MEDS ORDERED: IBUPROFEN 800 MG TAB PO SCH (09:00)
[2020-04-04] MEDS ORDERED: NON FORMULARY DRUG (Glucos Sul 2kcl/Msm/Chond/C/Mn [Glucosamine Chondroitin Cap] 1 EACH Ca PO SCH (09:00)
[2020-04-04] MEDS ORDERED: CLOPIDOGREL 75 MG TAB PO SCH (09:00)
[2020-04-04 09:09] VITALS: BP 154/79; PULSE 77; TEMP 98.1
--- NOTE | 2020-04-23 12:08 | PTCA ---
PERCUTANEOUSTRANS CORORONARY ANGIOGRAPHY DATE OF PROCEDURE: 04/03/2020 PERFORMING PHYSICIAN: Delbert Tay MD. PROCEDURE PERFORMED: 1. Atherectomy of the first obtuse marginal branch of the left circumflex using the orbital atherectomy device from [facility]. 2. Successful stenting of the first obtuse marginal branch of the left circumflex using 2.75 x 15 mm Xience JANES with an excellent angiographic results. INDICATION: Severe coronary artery disease involving the first obtuse marginal branch of the left circumflex was identified on prior heart catheterization where at that point, the RCA was stented. COMPLICATION: None. LEVEL OF SEDATION: Moderate with sedation length of about 30 minutes. PROCEDURE DESCRIPTION: After obtaining an informed consent, patient was brought to the cardiac labor relations manager. The right common femoral artery was cannulated using micropuncture technique, the micropuncture wire passed easily, then I placed a 6-Maltese sheath at the right common femoral artery. Subsequently, I did engage the left main using JL4 guide. I did wire the first obtuse marginal branch using the [employer] wire. Atherectomy of the first obtuse marginal branch was performed using the orbital atherectomy device. It was performed under low speed only. Subsequently, I did stenting of the first obtuse marginal branch using 2.75 x 15 mm Xience JANES where the stent was positioned under fluoroscopy guidance and deployed under its nominal pressure. The following angiogram showed excellent angiographic results and the procedure was completed without any complication. POSTPROCEDURE MANAGEMENT .: 1. Dual anti-platelet therapy. 2. Risk factor modifications. 3. Follow up with the patient. MMODL / IJN: [id number] /
== END 2020-04-04 10:15 | disposition home or self-care (01) ==
LOC: CATHCVL 10:52 → 3NCARDOBS 13:28 → CATHCVL 04-04 10:15
PROVIDERS: ATTEND Internal Medicine Interventional Cardiology
DX: R07.89 Other chest pain (principal); Z87.891 Personal history of nicotine dependence; Z82.49 Family history of ischemic heart disease and other diseases of the circulatory system; I45.10 Unspecified right bundle-branch block; E66.3 Overweight; Z68.32 Body mass index [BMI] 32.0-32.9, adult; Z79.1 Long term (current) use of non-steroidal anti-inflammatories (NSAID); Z79.82 Long term (current) use of aspirin; Z79.51 Long term (current) use of inhaled steroids; Z79.899 Other long term (current) drug therapy; Z88.0 Allergy status to penicillin
CPT/HCPCS: 94760; 80048; 85025; C9602; C1760; C1725 ×2; C1769 ×4; C1894; C1714; C1874; J2250; J2001; J0583; J1170; Q9967

== ENCOUNTER → 2020-08-17 | Outpatient (CLI) | payer MEDICAID ==
[2020-08-17 09:17] LABS: Appearance,Urine Clear (Clear); Bilirubin,Urine Negative (Negative); Blood,Urine Negative (Negative); Color,Urine Light Yellow; Glucose,Urine (UA) Negative (Negative); Ketones,Urine Negative (Negative); Leukocyte Esterase,Urine Negative (Negative); Nitrite,Urine Negative (Negative); Protein,Urine Negative (Negative); Specific Gravity,Urine 1.015 (1.001-1.035); Urobilinogen,Urine <2.0 mg/dL (<2.0)
[2020-08-17 14:35] LABS: Basophils # (A) 0.05 X 10*3/uL (0.00-0.10); Basophils % (A) 0.5 %; Eosinophils # (A) 0.51 X 10*3/uL (0.04-0.35); Eosinophils % (A) 5.4 %; HCT 46.9 % (39.6-50.0); HGB 14.9 g/dL (13.0-17.0); Lymphocytes # (A) 2.22 X 10*3/uL (0.90-5.00); Lymphocytes % (A) 23.7 %; MCHC 31.8 g/dL (32.0-37.0); MCV 91.2 fL (80.0-97.0); Mean Platelet Volume 9.2 fL (9.5-12.2); Monocytes % (A) 7.5 %; Neutrophils # (A) 5.87 X 10*3/uL (1.80-7.70); Neutrophils % (A) 62.6 %; Platelet Count 253 X 10*3/uL (140-440); RBC 5.14 X 10*6/uL (4.40-5.60); RDW 13.8 % (11.5-14.5); WBC 9.38 X 10*3/uL (4.50-10.00)
[2020-08-17 16:48] LABS: African American GFR (CKD) 115.6 (60.0-200.0); Albumin 4.4 g/dL (3.80-4.90); Albumin/Globulin Ratio 2.44 (1.60-3.17); Anion Gap 2.6 mmol/L (4.00-12.00); BUN/Creat Ratio 28.57 Ratio (12.00-20.00); Calcium 9.7 mg/dL (8.7-10.3); Carbon Dioxide 30.4 mmol/L (21.6-31.8); Chol/HDL Ratio 2.9; Globulin 1.8 g/dL (1.6-3.3); Non-African American GFR(CKD) 99.7 (60.0-200.0); Potassium 5.2 mmol/L (3.5-5.5); Total Bilirubin 0.6 mg/dL (0.3-1.2); Total Protein 6.2 g/dL (6.2-8.2)
[2020-08-17 16:56] LABS: Prostate Specific Antigen 0.7 ng/mL (0.0-4.5)
== END | disposition home or self-care (01) ==
LOC: LABWHC1 08:11
PROVIDERS: ATTEND Family Medicine
DX: Z00.00 Encounter for general adult medical examination without abnormal findings (principal); I10 Essential (primary) hypertension; E78.5 Hyperlipidemia, unspecified; Z12.5 Encounter for screening for malignant neoplasm of prostate
CPT/HCPCS: 36415; 80053; 80061; 81003; 82306; 84153; 84443; 85025

== ENCOUNTER → 2021-04-08 | Outpatient (CLI) | payer MEDICAID ==
[2021-04-08 12:25] LABS: HCT 39.4 % (39.0-53.0); HGB 12.7 gm/dL (13.0-17.5); MCH 29.2 pg (25.0-35.0); MCHC 32.2 g/dL (31.0-37.0); MCV 90.6 fL (80.0-100.0); Mean Platelet Volume 6.6; Platelet Count 297 k/uL (150-450); RBC 4.35 m/uL (4.30-5.90); RDW 13.3 % (11.5-15.5)
[2021-04-08 12:50] LABS: African American GFR (CKD) >90 (>60 ml/min/1.73 sqM); Anion Gap 5 mmol/L; Blood Urea Nitrogen 16 mg/dL (9-20); Carbon Dioxide 27 mmol/L (22-30); Chloride 102 mmol/L (98-107); Non-African American GFR(CKD) >90 (>60 ml/min/1.73 sqM); Sodium 134 mmol/L (137-145)
== END | disposition home or self-care (01) ==
LOC: LABPAT 11:06
PROVIDERS: ATTEND Internal Medicine Interventional Cardiology
DX: Z01.812 Encounter for preprocedural laboratory examination (principal); R07.9 Chest pain, unspecified
CPT/HCPCS: 36415; 80051; 82565; 84520; 85027

== ENCOUNTER → 2021-04-09 | Day surgery (SDC) | payer MEDICAID ==
[2021-04-08 13:34] VITALS: BMI 33.5
[~2021-04-09] MED LIST changes: +ADENOSINE 90 MG in SODIUM CHLORIDE 0.9% 60 ML IVP ONE; +HEPARIN SODIUM 1,000 UN/ML (10ML VL) IV ONE; +HEPARIN SODIUM,PORCINE 10,000 UNIT in SODIUM CHLORIDE 0.9% 1,000 ML IRRIGATION PRN; +HEPARIN SODIUM,PORCINE 2,500 UNIT in SODIUM CHLORIDE 0.9% 250 ML IRRIGATION PRN; +IOPAMIDOL-370 125ML BTL INJ ONE; +ISOSORBIDE MONONITRATE ER 30 MG TAB.ER.24H PO STA; +LIDOCAINE 1% INJ 10MG/ML (20 ML MDV) SQ ONE; +MIDAZOLAM 2 MG/2 ML VIAL IV ONE; +SODIUM CHLORIDE 0.9% 1,000 ML IV ONE; -SODIUM CHLORIDE 0.9% 1,000 ML in EMPTY BAG 1 BAG IV ONE; +SODIUM CHLORIDE 0.9% 1,000 ML in EMPTY BAG 1 BAG IV SCH; +fentaNYL (PF) 50 MCG/ML 2 ML AMP IV ONE
[2021-04-09 07:25] VITALS: TEMP 97.7
[2021-04-09 12:29] VITALS: BP 117/72; PULSE 80; RESP 16
--- NOTE | 2021-04-10 13:28 | CC ---
CARDIAC CATHETERIZATION REPORT DATE OF SERVICE: 04/09/2021 PERFORMING PHYSICIAN: Delbert Tay M.D. PROCEDURES PERFORMED: 1. Selective right and left coronary angiogram. 2. Left heart catheterization. 3. Fractional flow reserve (FFR) of the right coronary artery. INDICATION: This is a 65-year-old gentleman with coronary artery disease and prior stenting of the RCA and LCX who was seen in the office yesterday experiencing symptoms of chest discomfort with exertion concerning for angina. APPROACH: Right common femoral artery. COMPLICATIONS: None. LEVEL OF SEDATION: Moderate, with sedation length of 26 minutes. PROCEDURE DESCRIPTION: After obtaining informed consent, the patient was brought to the cardiac laborer filter plant. The right common femoral artery was cannulated using micropuncture technique under ultrasound guidance. The micropuncture wire passed easily. Then I placed a 6-Romanian sheath at the right common femoral artery. Selective right and left coronary angiogram was performed with JR4 and JL4 catheters. Left heart catheterization was performed using a 6-Romanian pigtail catheter. After that I performed an FFR of the RCA; please see separate paragraph for that. SELECTIVE CORONARY ANGIOGRAM: 1. The right coronary artery is a large-caliber vessel and it is a dominant vessel. The RCA proximally appeared to have mild disease only. The mid RCA has a lesion that appeared to be in the range of 60%. This is just proximal to a stented segment where the stent seems to be patent. The RCA distally has mild disease only and bifurcates into PDA and PLV branches. 2. The left main has mild disease only. It into LCX and ramus intermedius and LAD. 3. The LCX is a large-caliber vessel. It is a nondominant vessel. The LCX has mild disease only. 4. The ramus intermedius is stented and the stent is patent. 5. The LAD has mild disease only. HEMODYNAMICS: The LVEDP was about 10 to 12 mmHg without significant gradient across the aortic valve. FFR OF THE RCA: After zeroing zeroing the Doppler wire and equalizing between the Doppler wire and the guiding catheter, the RCA was engaged. Subsequently the Doppler wire was advanced distal to the lesion in the mid right coronary artery. FFR was performed using IV adenosine infusion, and the FFR came in to be at 0.86. At that point, we decided to stop. CONCLUSION: 1. Patent stent in the mid RCA, intermediate to severe disease involving the RCA just proximal to the stented segment. FFR was performed and came in to be nonischemic at 0.86. 2. Mild disease involving the distal left main coronary artery; appeared to be in the range of 20% to 30%. 3. Patent stent in the ramus intermedius coronary artery. 4. Mild disease involving the left anterior descending artery. 5. Normal left-sided filling pressure. The LVEDP was 12 mmHg. POSTPROCEDURE MANAGEMENT: 1. Given the above anatomy, I advised maximized medical treatment and conservative medical approach along with aggressive cholesterol control and risk factor modifications. 2. Follow up with the patient. MMODL / IJN: [id number] /
== END ==
LOC: CATHCVL 06:54
PROVIDERS: ATTEND Internal Medicine Interventional Cardiology
DX: I25.110 Atherosclerotic heart disease of native coronary artery with unstable angina pectoris (principal); I10 Essential (primary) hypertension; E78.00 Pure hypercholesterolemia, unspecified; E78.5 Hyperlipidemia, unspecified; Z82.49 Family history of ischemic heart disease and other diseases of the circulatory system; Z72.0 Tobacco use; Z95.5 Presence of coronary angioplasty implant and graft; Z20.822 Contact with and (suspected) exposure to COVID-19; Z88.0 Allergy status to penicillin; E66.3 Overweight; Z79.1 Long term (current) use of non-steroidal anti-inflammatories (NSAID); Z79.82 Long term (current) use of aspirin; Z79.51 Long term (current) use of inhaled steroids; Z79.899 Other long term (current) drug therapy
CPT/HCPCS: 93571; 93458; 87635; C1760; C1887; C1894; C1769 ×3; J2250; J2001; J3010; J1644; J0153; Q9967

== ENCOUNTER → 2021-08-17 | Outpatient (CLI) | payer MEDICAID ==
[2021-08-17 15:23] LABS: Basophils # (A) 0.06 X 10*3/uL (0.00-0.10); Basophils % (A) 0.7 %; Eosinophils # (A) 0.55 X 10*3/uL (0.04-0.35); Eosinophils % (A) 6.4 %; HCT 42.7 % (39.6-50.0); HGB 13.6 g/dL (13.0-17.0); Immature Grans, Automated 0.4 %; Lymphocytes # (A) 2.12 X 10*3/uL (0.90-5.00); Lymphocytes % (A) 24.7 %; MCH 28.5 pg (27.0-32.0); MCHC 31.9 g/dL (32.0-37.0); MCV 89.3 fL (80.0-97.0); Mean Platelet Volume 9.3 fL (9.5-12.2); Monocytes # (A) 0.68 X 10*3/uL (0.20-1.00); Monocytes % (A) 7.9 %; NRBC Per 100 WBC 0 /100 WBCS (0.0-0.0); Neutrophils # (A) 5.13 X 10*3/uL (1.80-7.70); Neutrophils % (A) 59.9 %; Platelet Count 222 X 10*3/uL (140-440); RBC 4.78 X 10*6/uL (4.40-5.60); WBC 8.57 X 10*3/uL (4.50-10.00)
[2021-08-17 15:36] LABS: ALT 15 U/L (10-49); AST 21 U/L (14-35); African American GFR (CKD) 114.8 (60.0-200.0); Albumin 4.1 g/dL (3.8-4.9); Albumin/Globulin Ratio 1.78 (1.60-3.17); Alkaline Phosphatase 89 U/L (41-126); BUN/Creat Ratio 21.57 Ratio (12.00-20.00); Blood Urea Nitrogen 15.1 mg/dL (9.0-27.0); Calcium 9.2 mg/dL (8.7-10.3); Carbon Dioxide 23.9 mmol/L (20.0-27.5); Chloride 101 mmol/L (96-109); Globulin 2.3 g/dL (1.6-3.3); Glucose 110 mg/dL (70-110); LDL Cholesterol,Calculated 48.2 mg/dL (0.0-131.0); Potassium 4.4 mmol/L (3.5-5.5); Sodium 135 mmol/L (135-145); Total Protein 6.4 g/dL (6.2-8.2)
== END | disposition home or self-care (01) ==
LOC: LABWHC1 08:49
PROVIDERS: ATTEND Nurse Practitioner
DX: Z00.00 Encounter for general adult medical examination without abnormal findings (principal); E78.5 Hyperlipidemia, unspecified; I10 Essential (primary) hypertension; Z13.29 Encounter for screening for other suspected endocrine disorder; Z12.5 Encounter for screening for malignant neoplasm of prostate
CPT/HCPCS: 36415; 80053; 80061; 82306; 84153; 84439; 84443; 85025

== ENCOUNTER → 2021-09-28 | Day surgery (SDC) | payer MEDICAID ==
[~2021-09-28] MED LIST changes: -ADENOSINE 90 MG in SODIUM CHLORIDE 0.9% 60 ML IVP ONE; -ALPRAZolam 0.25 MG TAB PO PRN; -ALPRAZolam 0.5 MG TAB PO PRN; -ASPIRIN 325 MG TAB PO STA; -ATORVASTATIN 80 MG TAB PO STA; -HEPARIN SODIUM 1,000 UN/ML (10ML VL) IV ONE; -HEPARIN SODIUM,PORCINE 10,000 UNIT in SODIUM CHLORIDE 0.9% 1,000 ML IRRIGATION PRN; -HEPARIN SODIUM,PORCINE 2,500 UNIT in SODIUM CHLORIDE 0.9% 250 ML IRRIGATION PRN; -IOPAMIDOL-370 125ML BTL INJ ONE; -ISOSORBIDE MONONITRATE ER 30 MG TAB.ER.24H PO STA; +LACTATED RINGERS 1,000 ML IV SCH; +LIDOCAINE 1% (10MG/ML) FOR IV START INTRADERMA PRN; +LIDOCAINE 1% INJ 10MG/ML (20 ML MDV) ONE; -LIDOCAINE 1% INJ 10MG/ML (20 ML MDV) SQ ONE; -MIDAZOLAM 2 MG/2 ML VIAL IV ONE; -NITROGLYCERIN SL TABS 0.4 MG TAB SUBLINGUAL PRN; +PROPOFOL 10 MG/ML 20 ML VIAL IV ONE; -SODIUM CHLORIDE 0.9% 1,000 ML IV ONE; -SODIUM CHLORIDE 0.9% 1,000 ML in EMPTY BAG 1 BAG IV SCH; -fentaNYL (PF) 50 MCG/ML 2 ML AMP IV ONE
[2021-09-28 09:27] VITALS: TEMP 97.4
--- NOTE | 2021-09-28 10:31 | P.PCN ---
Date of Procedure: 09/28/21 Procedure(s) Performed: BRIEF HISTORY: Patient is a 65-year-old pleasant 8 male scheduled for an elective colonoscopy as a part of evaluation of prior history of colon polyps. Last colonoscopy was 5 years ago. PROCEDURE PERFORMED: Colonoscopy. PREOPERATIVE DIAGNOSIS: History of colon polyps. IV sedation per Anesthesia. PROCEDURE: After informed consent was obtained, the patient, was brought into the endoscopy unit. IV sedation was administered by Anesthesia under continuous monitoring. Digital rectal examination was normal. Initially the Olympus CF-160 flexible video colonoscope was then inserted in the rectum, gradually advanced into the cecum without any difficulty. Careful examination was performed as the scope was gradually being withdrawn. Ileocecal valve and the appendiceal orifice were visualized and appeared normal. Prep was excellent. Mucosa of the cecum, ascending colon, transverse colon, descending colon, sigmoid colon, and rectum appeared normal. Scattered left-sided diverticulosis. Retroflexion was performed in the rectum and no lesions were seen. The patient tolerated the procedure well. IMPRESSION: Normal-appearing colon from rectum to cecum with no evidence of colorectal neoplasia . Scattered sigmoid diverticulosis. RECOMMENDATIONS: Findings of this examination were discussed with the patient as well as his family.. Advised to have a repeat surveillance colonoscopy in 5 years from now because of the prior history of colon polyps
[2021-09-28 10:47] VITALS: RESP 16
[2021-09-28 10:58] VITALS: BP 142/88; PULSE 87
== END ==
LOC: ORWHC2ENDO 07:55
PROVIDERS: ATTEND Internal Medicine Gastroenterology
DX: Z12.11 Encounter for screening for malignant neoplasm of colon (principal); K57.30 Diverticulosis of large intestine without perforation or abscess without bleeding; Z86.010 Personal history of colon polyps; I25.10 Atherosclerotic heart disease of native coronary artery without angina pectoris; I10 Essential (primary) hypertension; E78.5 Hyperlipidemia, unspecified; G47.33 Obstructive sleep apnea (adult) (pediatric); M19.90 Unspecified osteoarthritis, unspecified site; Z79.899 Other long term (current) drug therapy; Z79.82 Long term (current) use of aspirin; Z88.0 Allergy status to penicillin
CPT/HCPCS: J2001; J2704; G0121

== ENCOUNTER → 2023-01-05 | Outpatient (CLI) | payer MEDICARE ==
--- NOTE | 2023-01-05 14:59 | US ---
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 FINDINGS: EXAM MEASUREMENTS: Abdominal Aorta: Proximal: 2.0 x 2.3cm Mid: 1.7 x 2.1cm Distal: 1.7 x 1.4cm Bifurcation: Rt 1.1cm Lt 1.0cm LEAKAGE TESTER NOTES: Normal caliber aorta seen IMPRESSION: No sonographic evidence for AAA.
== END | disposition home or self-care (01) ==
LOC: RADUSWWP 07:36
PROVIDERS: ATTEND Internal Medicine Geriatric Medicine
DX: Z13.6 Encounter for screening for cardiovascular disorders (principal); I71.40 Abdominal aortic aneurysm, without rupture, unspecified
CPT/HCPCS: 76706

== ENCOUNTER → 2023-01-05 | Outpatient (CLI) | payer MEDICARE ==
--- NOTE | 2023-01-05 10:21 | XR ---
EXAMINATION TYPE: XR lumbar spine 2 or 3V DATE OF EXAM: 01/05/2023 8:16 AM INDICATION: Patient age:Male; 67 years old; Reason for study: M54.50 low back pain; COMPARISON: None TECHNIQUE: Frontal, lateral and coned in L5-S1 lateral views of the spine. FINDINGS: No evidence of any acute osseous pathology. No evidence of loss of vertebral body height i s seen. There is normal alignment of the lumbar vertebral bodies. Mild scattered disc space narrowing . Multilevel marginal osteophyte formation throughout the visualized spine. There is facet joint arth ropathy throughout the spine. Scattered at least mild neural foraminal stenosis severe is neural fora joseph stenosis at L5-S1. Atherosclerosis of the arterial vasculature. IMPRESSION: 1. No acute fracture. 2. Moderate disc degeneration worse at L5-S1 with at least moderate to severe neural foraminal stenos is.
== END | disposition home or self-care (01) ==
LOC: RADXRMAIN 07:55
PROVIDERS: ATTEND Internal Medicine Geriatric Medicine
DX: M51.37 Other intervertebral disc degeneration, lumbosacral region (principal); M99.73 Connective tissue and disc stenosis of intervertebral foramina of lumbar region
CPT/HCPCS: 72100